=== PATIENT | female | born 1945 | race Caucasian/White ===

== ENCOUNTER 2017-08-03 07:48 | Day surgery (SDC) | payer MEDICARE, OTHER ==
[~2017-08-03] VITALS: Ht 160 cm; Wt 76.2 kg
[~2017-08-03 07:48] MED LIST: AMLODIPINE BESYL5 MG PO; CALCIUM500 MG PO; CLOPIDOGREL300 MG PO; CYCLOBENZAPRINE10 MG PO; GABAPENTIN600 MG PO; LIPITOR20 MG PO; SYNTHROID50 MCG PO; VITAMIN B-121000 MCG PO; VITAMIN C1000 MG PO; ZESTRIL10 MG PO
--- NOTE | 2017-08-03 09:52 | NUR ---
08/03/17 0952 Kelly Pyle 0940 PATIENT ARRIVES TO PACU ASLEEP, AWAKENS WITH VERBAL STIMULI, ANSWERS QUESTIONS APPROPRIATELY, DENIES PAIN OR NAUSEA, THEN BACK TO SLEEP. RESP EVEN AND UNLABORED, NC AT 3 LITERS. OXYGEN TURNED OFF, SATS 96% ON ROOM AIR.
--- NOTE | 2017-08-03 16:52 | OR ---
[facility] [address] [place], [place] [address] Signed DATE OF OPERATION: 08/03/2017 SURGEON: Tarah Edward MD PREOPERATIVE DIAGNOSES: 1. Rectal bleeding. 2. Daily Plavix. 3. Personal history of colonic polyps. 4. Diverticulosis. 5. Internal hemorrhoids. 6. Maternal cousin with colon cancer. 7. Recent left lower quadrant abdominal pain, improved with antibiotics. POSTOPERATIVE DIAGNOSES: 1. Moderate sigmoid diverticulosis. 2. Moderate beefy internal hemorrhoids. PROCEDURE: Colonoscopy without biopsy (the patient on Plavix). INDICATIONS: Adan is a 71-year-old female, who has been through several prior colonoscopies. She has had colonic polyps removed and is known to have diverticulosis along with internal hemorrhoids. She also has intermittent rectal bleeding while on Plavix. She developed left lower quadrant abdominal pain and a CT scan showed some mild colonic wall thickening. She took antibiotics through her primary care provider and that improved. She was asked to see me for a followup colonoscopy. She told me her maternal cousin had colon cancer. I met with Adan in the office and I gave her a pamphlet on colonoscopy. She understands the nature of that test along with its risks including, but not limited to gas bloating, crampy abdominal pain, bleeding, perforation, requiring surgery, and missed diagnosis. We also reviewed the written instructions for her bowel prep line by line including the section on Plavix that we hold for 5 days prior to the procedure. Unfortunately, Adan continued her Plavix till today. She also understands the need for IV conscious sedation. She expressed understanding and wished to proceed. PROCEDURE NOTE: Adan was taken into our endoscopy suite and placed in the left lateral decubitus position. She was given 9 mg of Versed and 175 mcg of fentanyl. A digital rectal exam was performed and she had just a tiny external hemorrhoid. The adult colonoscope was introduced and advanced under direct visualization of camera. It took a little bit to Electronically Signed By: TARAH EDWARD MD 08/03/17 1652 PATIENT NAME: ADAN MANLEY OPERATIVE REPORT DATE OF : 49 REPORT #: [id number] PHYSICIAN: TARAH EDWARD MD PCP: JULIET HERRERA PAC REPORT IS CONFIDENTIAL AND NOT TO BE RELEASED WITHOUT AUTHORIZATION [facility] [address] [place], [place] [address] Signed get through the rectosigmoid junction and her sigmoid colon. After that, it opened up nicely. We came around to the cecum then ileocecal valve. Her prep was moderate. Several areas had to be irrigated and suctioned out. The scope was then slowly withdrawn. We saw no pathology throughout the entire colon or rectum except the diverticulosis. They are moderate in size, moderate in number, and scattered about. In the rectum, the scope had been retroflexed and she does have moderate beefy red internal hemorrhoids. I am sure these bleeds are from time to time. After this, the gas was suctioned out and the colonoscope removed. Adan tolerated the procedure well. RECOMMENDATIONS: I can see Adan back in 5 years for repeat colonoscopy. Tarah Edward MD ALB/MODL /[id number] cc: Dr. Danial Edward MD Copies: TARAH EDWARD MD ~ Electronically Signed By: TARAH EDWARD MD 08/03/17 1652 PATIENT NAME: ADAN MANLEY OPERATIVE REPORT DATE OF : 49 REPORT #: [id number] PHYSICIAN: TARAH EDWARD MD PCP: JULIET HERRERA PAC REPORT IS CONFIDENTIAL AND NOT TO BE RELEASED WITHOUT AUTHORIZATION
== END 2017-08-03 10:25 | disposition home or self-care (01) ==
LOC: DS 07:48 → OPS 07:48 → DS 09:00 → OPS 09:00
PROVIDERS: Colon & Rectal Surgery
PROC: 0DJD8ZZ Inspection of Lower Intestinal Tract, Via Natural or Artificial Opening Endoscopic (ICD-10-PCS; principal; 2017-08-03 09:00)
DX: K64.8 Other hemorrhoids (principal); K57.30 Diverticulosis of large intestine without perforation or abscess without bleeding; Z83.71 Family history of colonic polyps; Z80.0 Family history of malignant neoplasm of digestive organs; Z79.02 Long term (current) use of antithrombotics/antiplatelets; Z79.899 Other long term (current) drug therapy
CPT/HCPCS: 99153; G0500; J2250; J3010; J7120

== ENCOUNTER 2024-06-25 11:08 | Day surgery (SDC) | payer MEDICARE, OTHER ==
[~2024-06-25] VITALS: Ht 160 cm; Wt 79.0 kg
[~2024-06-25 11:08] MED LIST changes: +ASPIRIN81 MG PO; +CIPRO500 MG PO; +CONSTULOSE10 GM/15 M PO; +FLAGYL500 MG PO; +FUROSEMIDE20 MG PO; +IBLOOD GLUCOSE TEST STRIP 1 EA TEST VI PRN; +LACTATED RINGER'S 1,000 ML IV SCH; +LIDOCAINE HCL 1% 5 ML SDV INJ ONE; +MIDAZOLAM HCL 5 MG/5 ML VIAL IV PRN; +ONDANSETRON ODT8 MG PO; +SPIRIVA RESPIMAT4 G1 INH; +VITAMIN B12500 MCG PO; +fentaNYL citrate 100 MCG/2 ML VIAL IV PRN
[2024-06-25 11:27] VITALS: BP 154/78
--- NOTE | 2024-06-25 12:43 | NUR ---
PT UPDATED ON SURGERY WAIT TIME. NO OTHER NEEDS AT THIS TIME. CALL LIGHT WITHIN REACH.
[2024-06-25] MEDS ORDERED: MIDAZOLAM HCL 5 MG/5 ML VIAL ONE (13:42)
[2024-06-25] MEDS ORDERED: fentaNYL citrate 100 MCG/2 ML VIAL ONE ×2 (13:42→14:15)
--- NOTE | 2024-06-25 14:47 | NUR ---
06/25/24 Maricruz Mendoza PATIENT'S OXYGEN SATURATION REMAINS 96% OXYGEN IS DISCONTINUED AT THIS TIME.
[2024-06-25 15:16] VITALS: BP 184/79
--- NOTE | 2024-06-26 11:03 | OR ---
[facility] [address] [place], [place] [address] Signed DATE OF OPERATION: 06/25/2024 SURGEON: Ana Lilia Smith MD PREOPERATIVE DIAGNOSES: 1. Episodic rectal bleeding. 2. Known history of diverticulosis. 3. Hemorrhoidal prolapse (grade 3 hemorrhoid clinically). POSTOPERATIVE DIAGNOSES: 1. Sigmoid and left-sided diverticulosis. 2. Mild cecitis. 3. Internal hemorrhoidal change. PROCEDURE: Total colonoscopy to cecum with biopsy of cecum. ANESTHESIA: Intravenous sedation fentanyl 200 mcg and Versed 6 mg. INDICATION: A 78-year-old white woman, patient of BILLY Alonso. She has undergone colonoscopy in [address] Santhosh Edward and since that time has undergone upper endoscopy and colonoscopy in 2021 showing diverticulosis as well as esophagitis. She has had episodic rectal bleeding and also describes what sounds like grade 3 hemorrhoidal disease having to "reduce" hemorrhoidal prolapse after straining that stool. She is admitted at this time to undergo colonoscopy to better characterize the issue of her rectal bleeding. She has no family history of colon cancer. FINDINGS: The prep was good. Complete colonoscopy was undertaken to the cecum with full intubation of the cecum. The ileocecal valve and appendiceal orifice were normal. She did have mild inflammation of the cecum. Numerous diverticula were seen in the sigmoid and left colon. She did have hemorrhoidal changes, none of which were present with prolapse at this time. DESCRIPTION OF PROCEDURE: The patient was brought to the endoscopy suite and placed in lateral decubitus position, given intravenous sedation to the point of slurred speech and nystagmus. Digital rectal examination was normal. Electronically Signed By: ANA LILIA SMITH MD 06/26/24 1103 PATIENT NAME: ADAN MANLEY OPERATIVE REPORT DATE OF : 49 REPORT #: [id number] PHYSICIAN: ANA LILIA SMITH MD PCP: JULIET HERRERA PAC REPORT IS CONFIDENTIAL AND NOT TO BE RELEASED WITHOUT AUTHORIZATION [facility] [address] [place], [place] [address] Signed An Olympus video colonoscope was passed in the rectum and manipulated throughout the colon noting numerous diverticula of the sigmoid and left colon. The scope was changed out for more flexible version once again intubating the sigmoid and left colon ultimately advancing to the cecum itself. The ileocecal valve and appendiceal orifice were normal that there was mild inflammation of the cecum. Biopsies were taken of the cecum. The scope was then withdrawn and examination showed no sign of abnormality other than diverticulosis of the left colon and sigmoid. In the rectum, there were hemorrhoidal changes, none of which were profound and no sign of bleeding. Retroflexed view was otherwise normal. The scope was removed. The patient was taken to recovery room in good condition. CONCLUDING DIAGNOSIS: Diverticulosis and mild inflammation of cecum, hemorrhoidal changes. No sign of neoplasm. PLAN: Recommend high-fiber diet or a dietary supplement of fiber. Repeat colonoscopy in 10 years, sooner if symptoms should develop. If she has recurrent bleeding, I am happy to see her again at the request of Juliet Herrera. MD BRITTNY Boucher/KULDIP /[id number] cc: Juliet Herrera PA-C Copies: ~ Electronically Signed By: ANA LILIA SMITH MD 06/26/24 1103 PATIENT NAME: ADAN MANLEY OPERATIVE REPORT DATE OF : 49 REPORT #: [id number] PHYSICIAN: ANA LILIA SMITH MD PCP: JULIET HERRERA PAC REPORT IS CONFIDENTIAL AND NOT TO BE RELEASED WITHOUT AUTHORIZATION
--- NOTE | 2024-06-27 13:56 | PATH ---
[facility] [address] [place], [place] [address] Signed SPECIMEN(S): A CECUM COLON BIOPSY SPECIMEN SOURCE: A. CECUM COLON BIOPSY vv CLINICAL HISTORY: History of polyps, post: Diverticulosis/mild cecitis FINAL PATHOLOGIC DIAGNOSIS: Cecum, biopsy: - Colonic mucosa with focal active colitis BRP MICROSCOPIC EXAMINATION: Histologic sections of all submitted blocks are examined by light microscopy. These findings, together with the gross examination, support the pathologic diagnosis. GROSS DESCRIPTION: The specimen, labeled and designated "Emily, E, cecum colon biopsy," is received in formalin and consists of two ferraro soft tissue fragments, ranging from 0.3-0.4 cm. Entirely submitted in (A1). AB (under the direct supervision of a pathologist) The Gross Description was prepared using a voice recognition system. The report was reviewed for accuracy; however, sound-alike word errors, addition and/or deletions may occur. If there is any question about this report, please contact Client Services. ADDITIONAL NOTES: Immunohistochemical and/or in situ hybridization studies if performed in this case included appropriate positive controls that reacted as expected. This test was developed and its performance characteristics determined by [facility]. It has not been cleared or approved by the U.S. Food and Drug Administration. The FDA has determined that such clearance or approval is not necessary. This test is used for clinical purposes. It should not be regarded as investigational or for research. [facility] is certified under the Clinical Laboratory Improvement Amendments of 1988 (CLIA) as qualified to perform high complexity clinical laboratory testing. PATIENT NAME: ADAN MANLEY PATHOLOGY DATE OF : 49 REPORT #: [id number] PHYSICIAN: NATALIA FARFAN PCP: JULIET HERRERA PAC REPORT IS CONFIDENTIAL AND NOT TO BE RELEASED WITHOUT AUTHORIZATION [address] [address] Signed PERFORMING LABORATORY: Technical component was performed by [facility], [address] [place] [address] (CLIA# [id number]). Professional interpretation was performed by [facility], [address] [place] [address] (CLIA#: [id number]). Diagnostician: Price Gomez MD Pathologist Electronically Signed 06/27/2024 Copies: ~ PATIENT NAME: ADAN MANLEY PATHOLOGY DATE OF : 49 REPORT #: [id number] PHYSICIAN: NATALIA FARFAN PCP: JULIET HERRERA PAC REPORT IS CONFIDENTIAL AND NOT TO BE RELEASED WITHOUT AUTHORIZATION
== END 2024-06-25 15:27 | disposition home or self-care (01) ==
LOC: DS 11:08
PROVIDERS: ATTEND Surgery
PROC: 0DBH8ZX Excision of Cecum, Via Natural or Artificial Opening Endoscopic, Diagnostic (ICD-10-PCS; principal; 2024-06-25 12:15)
DX: K52.9 Noninfective gastroenteritis and colitis, unspecified (principal); K64.2 Third degree hemorrhoids; K57.31 Diverticulosis of large intestine without perforation or abscess with bleeding; I10 Essential (primary) hypertension; E03.9 Hypothyroidism, unspecified; Z87.09 Personal history of other diseases of the respiratory system
CPT/HCPCS: 99153; G0500; J2250; J3010; J7121